=== PATIENT | male | born 1940 | race Caucasian/White ===

== ENCOUNTER 2021-10-12 15:04 | Emergency (ER) | payer OTHER, BC ==
--- OUTSIDE RECORDS SUMMARY | 2021-10-12 15:21 | XMS REPORT | Continuity of Care Document ---
:1940 Author Organization [facility] t Address [address] [place] [address] Care Team Providers Name Role Phone CECE Attending Clinician Unavailable MONROE Attending Clinician Unavailable Payers Payer Name Policy Type Policy Number Effective Date Expiration Date S [facility] [id number] 2021 (MEDICARE 00:00:00 REPLACEMENT HMO) Problems This patient has no known problems. Allergies, Adverse Reactions, Alerts This patient has no known allergies or adverse reactions. Medications This patient has no known medications. Procedures This patient has no known procedures. Encounters Start End Encounter Admission Attending Care Care Encounter Source Date/Time Date/Time Type Type Clinicians Facility Department ID 2021-08-30 2021-08-30 Outpatient [facility] [id number] [place] 11:02:00 11:02:00 [facility] 2021-08-28 2021-08-28 Outpatient [facility] [id number] [place] 00:00:00 00:00:00 BRANKA [address] 2021-08-28 2021-08-28 Outpatient [facility] [id number] [place] 00:00:00 00:00:00 BRANYAIR [address] [facility] 2020-09-27 2020-09-27 Outpatient [facility] [id number] [place] 00:00:00 00:00:00 ANTONINA [address] 2020-08-22 2020-08-22 Outpatient [facility] [id number] [place] 00:00:00 00:00:00 BRANKA [address] [facility] 2020-08-22 2020-08-22 Outpatient [facility] [id number] [place] 00:00:00 00:00:00 BRANKA [address] 2020-01-05 2020-01-05 [facility] [id number] [place] 00:00:00 00:00:00 ANTONINA [address] Results This patient has no known results.
--- NOTE | 2021-10-12 17:07 | RAD REPORT ---
EXAM DESCRIPTION: CT - [id number] - 10/12/2021 4:52 pm CLINICAL HISTORY: Trauma, head and neck injury. head injury COMPARISON: No comparisons TECHNIQUE: Axial 5 mm thick images of the head were obtained. Axial 2 mm thick images of the cervical spine were obtained with sagittal and coronal reconstruction images generated and reviewed. All CT scans are performed using dose optimization technique as appropriate and may include automated exposure control or mA/KV adjustment according to patient size. FINDINGS: CT HEAD WITHOUT CONTRAST: No acute hemorrhage, hydrocephalus or extra-axial collection is identified.No areas of brain edema or midline shift. Moderate chronic small vessel ischemic changes. Ethmoid air cell thickening.The calvarium is intact. CT CERVICAL SPINE WITHOUT CONTRAST: No fracture or subluxation.No prevertebral soft tissues swelling is identified. Multilevel cervical s pondylosis with varying degrees of neural foraminal narrowing. Scarring in the right upper lobe. IMPRESSION: No acute intracranial or cervical spine findings.
--- NOTE | 2021-10-12 17:33 | EDPHYS ---
Physician Documentation [facility] Name: Hossein Stahl Age: 81 yrs Sex: Male : 1940 Arrival Date: 10/12/2021 Time: 15:06 Bed 10 Private MD: ED Physician Judi Brown HPI: 10/12 17:05 This 81 yrs old Male presents to ER via Ambulatory with complaints of Hand Injury, Hand ma2 Swelling. 17:05 The complaints affect the left hand diffusely. Onset: The symptoms/episode ma2 began/occurred gradually, 3 day(s) ago. Associated signs and symptoms: Pertinent negatives: nausea. Severity of symptoms: At their worst the symptoms were mild, in the emergency department the symptoms are unchanged. The patient has not experienced similar symptoms in the past. Patient fell off a ladder 2 steps, about 4 feet 5 days ago, he had his head, and right hand, where he sustained skin abrasions to the right forearm and right palm. Patient presents to ER today because his right forearm became red and warm. There is no pain, no headaches, there is no pain redness or any discomfort in the past. This problem is constant and been stable for the last 2 days, its not worsening today. Historical: - Allergies: 16:13 No Known Allergies; jh5 - Immunization history:: Adult Immunizations up to date. - Social history:: Smoking status: Patient denies any tobacco usage or history of. - Family history:: not pertinent. ROS: 17:05 Constitutional: Negative for fever, chills, and weight loss. ma2 17:05 All other systems are negative. Exam: 17:05 Constitutional: This is a well developed, well nourished patient who is awake, alert, ma2 and in no acute distress. Head/Face: Normocephalic, atraumatic. Eyes: Pupils equal round and reactive to light, extra-ocular motions intact. Lids and lashes normal. Conjunctiva and sclera are non-icteric and not injected. Cornea within normal limits. Periorbital areas with no swelling, redness, or edema. ENT: Nares patent. No nasal discharge, no septal abnormalities noted. Tympanic membranes are normal and external auditory canals are clear. Oropharynx with no redness, swelling, or masses, exudates, or evidence of obstruction, uvula midline. Mucous membranes moist. Neck: Trachea midline, no thyromegaly or masses palpated, and no cervical lymphadenopathy. Supple, full range of motion without nuchal rigidity, or vertebral point tenderness. No Meningismus. Chest/axilla: Normal chest wall appearance and motion. Nontender with no deformity. No lesions are appreciated. Cardiovascular: Regular rate and rhythm with a normal S1 and S2. No gallops, murmurs, or rubs. Normal PMI, no JVD. No pulse deficits. Respiratory: Lungs have equal breath sounds bilaterally, clear to auscultation and percussion. No rales, rhonchi or wheezes noted. No increased work of breathing, no retractions or nasal flaring. Abdomen/GI: Soft, non-tender, with normal bowel sounds. No distension or tympany. No guarding or rebound. No evidence of tenderness throughout. Back: No spinal tenderness. No costovertebral tenderness. Full range of motion. Skin: Warm, dry with normal turgor. Normal color with no rashes, no lesions, and no evidence of cellulitis. MS/ Extremity: There is right forearm abrasion to anterior aspect about 4 x 4 centimeter, there is a large indurated area around abrasion above the wrist all the way to the elbow anteriorly, about 10 inches x 2 inches, this area is not swollen with no fluctuance, however it is red and warm, there is no tenderness. Mildly edematous right arm, 2 abrasions to, however they are clean dry with no pus, partially healed, with no induration or cellulitis. Pulses equal, no cyanosis. Neurovascular intact. Full, normal range of motion. Neuro: Awake and alert, GCS 15, oriented to person, place, time, and situation. Cranial nerves II-XII grossly intact. Motor strength 5/5 in all extremities. Sensory grossly intact. Cerebellar exam normal. Normal gait. Vital Signs: 16:09 BP 97 / 77; Pulse 79; Resp 18; Temp 98.3; Weight 95.25 kg; Height 6 ft. 2 in. (187.96 jh5 cm); Pain 4/10; 16:09 Body Mass Index 26.96 (95.25 kg, 187.96 cm) 5 MDM: 17:01 Patient medically screened. ma2 17:05 Differential diagnosis: contusion, abrasion, Likely cellulitis, patient is able to ma2 range all joints in the right upper extremity no bony tenderness no sign of fractures, no signs or symptoms of DVT, abscess, or necrotizing fasciitis. Data reviewed: vital signs, nurses notes. 17:32 Counseling: I had a detailed discussion with the patient and/or guardian regarding: the ma2 historical points, exam findings, and any diagnostic results supporting the discharge/admit diagnosis, the presence of at least one elevated blood pressure reading (>120/80) during this emergency department visit, radiology results, the need for outpatient follow up. Response to treatment: the patient's symptoms have markedly improved after treatment. 10/12 16:26 Order name: CT Head C Spine; Complete Time: 17:32 [facility] Administered Medications: 17:44 Drug: Clindamycin 600 mg {Note: given in 2 shots via 2 rn.} Route: IM; Site: left [facility] ventrogluteal; Disposition Summary: 10/12/21 17:33 Discharge Ordered Location: Home ma2 Condition: Stable ma2 Diagnosis - Cellulitis of right upper limb ma2 Followup: ma2 - With: Private Physician - When: Tomorrow - Reason: Continuance of care Discharge Instructions: - Discharge Summary Sheet ma2 - Cellulitis, Adult ma2 Forms: - Medication Reconciliation Form mn2 - Thank You Letter ma2 - Antibiotic Education ma2 - Prescription Opioid Use ma2 Prescriptions: - Clindamycin HCl 300 mg Oral Capsule - take 1 capsule by ORAL route every 6 hours for 10 days; 40 capsule; Refills: 0, ma2 Product Selection Permitted Signatures: Dispatcher [employer] EDMS Judi Brown MD MD ma2 Deyanira Tai RN RN [facility] Corrections: (The following items were deleted from the chart) 16:04 16:01 Allergies: Benadryl; [place] [id number] 16:04 16:01 Allergies: Stadol; [place] [address] 16:04 16:01 Allergies: Avonex; [place] [address] 16:04 16:01 PMHx: Migraine; [place] [address] 16:04 16:01 PMHx: Bipolar disorder; [place] [address] 16:04 16:01 PMHx: Depressive disorder; [place] [address] 16:04 16:01 PMHx: Anxiety; [place] [address] 16:04 16:03 PMHx: Asthma; [email or web address] 16:04 16:03 PMHx: Heart disease; [place] [address] 16:04 16:03 Immunization history: Adult Immunizations up to date, [place] [address] 16:04 16:03 Social history: Smoking status: Patient denies any tobacco usage or history of. [facility] Patient uses alcohol, occasionally. [facility] 16:24 16:17 Forearm Right+RAD.RAD.BRZ ordered. EDMS EDMS 16:24 16:17 Elbow Right 3 View+RAD.RAD.BRZ ordered. EDMS EDMS 16:24 16:17 Wrist Right 3 View+RAD.RAD.BRZ ordered. EDMS EDMS 16:24 16:17 Hand Right 3 View+RAD.RAD.BRZ ordered. EDMS EDMS
--- NOTE | 2021-10-12 17:33 | ER ---
Nurse's Notes [facility] Name: Hossein Stahl Age: 81 yrs Sex: Male : 1940 Arrival Date: 10/12/2021 Time: 15:06 Bed 10 Private MD: Diagnosis: Cellulitis of right upper limb Presentation: 10/12 16:09 Chief complaint: Patient states: FELL OFF LADDER A WEEK AGO AND RIGHT HAND IS SWOLLEN jh5 AND MOVING UP WRIST. Coronavirus screen: Vaccine status: Patient reports receiving the 2nd dose of the covid vaccine. Client denies travel out of the [place] in the last 14 days. Ebola Screen: Patient negative for fever greater than or equal to 101.5 degrees Fahrenheit, and additional compatible Ebola Virus Disease symptoms Patient denies exposure to infectious person. Patient denies travel to an Ebola-affected area in the 21 days before illness onset. Initial Sepsis Screen: Does the patient meet any 2 criteria? No. Patient's initial sepsis screen is negative. Does the patient have a suspected source of infection? No. Patient's initial sepsis screen is negative. Risk Assessment: Do you want to hurt yourself or someone else? Patient reports no desire to harm self or others. Onset of symptoms was October 04, 2021. 16:09 Method Of Arrival: Ambulatory [facility] 16:09 Acuity: OLGA 3 5 Triage Assessment: 16:13 General: Appears in no apparent distress. slender, well groomed, well developed, well jh5 nourished. Pain: Denies pain. Musculoskeletal: Circulation, motion, and sensation intact. Capillary refill < 3 seconds, Range of motion: Swelling. Injury Description: FALL OFF 3RD STEP OF LADDER. Historical: - Allergies: 16:13 No Known Allergies; [facility] - Immunization history:: Adult Immunizations up to date. - Social history:: Smoking status: Patient denies any tobacco usage or history of. - Family history:: not pertinent. Vital Signs: 16:09 BP 97 / 77; Pulse 79; Resp 18; Temp 98.3; Weight 95.25 kg; Height 6 ft. 2 in. (187.96 jh5 cm); Pain 4/10; 16:09 Body Mass Index 26.96 (95.25 kg, 187.96 cm) [facility] ED Course: 15:06 Patient arrived in ED. am2 16:01 Triage completed. [facility] 16:13 Arm band placed on left wrist. [facility] 16:30 Judi Brown MD is Attending Physician. ok2 16:52 CT Head C Spine In Process Unspecified. EDMS Administered Medications: 17:44 Drug: Clindamycin 600 mg {Note: given in 2 shots via 2 rn.} Route: IM; Site: left [facility] ventrogluteal; Outcome: 17:33 Discharge ordered by . radha 17:45 Patient left the ED. [facility] Signatures: Dispatcher [employer] EDMS Maria E Allen 2 Judi Brown MD MD ma2 Rees, Jessica, RN RN [facility] Corrections: (The following items were deleted from the chart) 16:04 16:01 Allergies: Benadryl; [place] [id number] 16:04 16:01 Allergies: Stadol; [place] [address] 16:04 16:01 Allergies: Avonex; [place] [address] 16:04 16:01 PMHx: Migraine; [place] [address] 16:04 16:01 PMHx: Bipolar disorder; [place] [address] 16:04 16:01 PMHx: Depressive disorder; [place] [address] 16:04 16:01 PMHx: Anxiety; [place] [address] 16:04 16:03 PMHx: Asthma; [place] [address] 16:04 16:03 PMHx: Heart disease; [place] [address] 16:04 16:03 Immunization history: Adult Immunizations up to date, [place] [address] 16:04 16:03 Social history: Smoking status: Patient denies any tobacco usage or history of. [facility] Patient uses alcohol, occasionally. [facility] 16:05 15:56 Chief complaint: Patient states: chest pain x1 week [place] [address] 16:05 15:56 Coronavirus screen: Vaccine status: Patient reports receiving the 2nd dose of the [facility] covid vaccine. Client denies travel out of the [place] in the last 14 days. [facility] 16:05 15:56 Ebola Screen: Patient negative for fever greater than or equal to 101.5 degrees [facility], and additional compatible Ebola Virus Disease symptoms Patient denies exposure to infectious person. Patient denies travel to an Ebola-affected area in the 21 days before illness onset. [facility] 16:05 15:56 Initial Sepsis Screen: Does the patient meet any 2 criteria? No. Patient's [facility] initial sepsis screen is negative. Does the patient have a suspected source of infection? No. Patient's initial sepsis screen is negative. [facility] 15:56 Risk Assessment: Do you want to hurt yourself or someone else? Patient reports no [facility] desire to harm self or others. [facility] 15:56 Onset of symptoms was October 04, 2021 [place] [address] 15:56 Method Of Arrival: Ambulatory [place] [address] 15:56 BP 105 / 69; Pulse 83bpm; Resp 18bpm; Pulse Ox 97%; Temp 97.1F; 99.79 kg; Height [facility] 5 ft. 2 in.; BMI: 40.2; Pain 9/10; [facility] 15:56 Acuity: OLGA 3 [place] [address]
[2021-10-12] MEDS ORDERED: CLINDAMYCIN IV 150 MG/ML (4 mL) VIAL ONE (17:36)
[2021-10-12 17:56] VITALS: BP 97/77; TEMP 98.3
== END 2021-10-12 17:45 | disposition home or self-care (01) ==
LOC: ER 15:04
DX: L03.113 Cellulitis of right upper limb (principal)
CPT/HCPCS: 70450; 72125; 96372; 99283; S0077